=== PATIENT | female | born 1940 | race Caucasian/White ===

== ENCOUNTER 2021-12-06 13:00 | Outpatient (CLI) | payer MEDICARE, SELFPAY ==
[2021-12-06 12:01] LABS: Cholesterol* 178 mg/dL (90-199); Triglycerides* 119 mg/dL (40-149)
[2021-12-06 12:02] LABS: HDL Cholesterol* 105 mg/dL (>=50); LDL Cholesterol Calculated 49 mg/dL (<100)
[2021-12-06 13:04] LABS: Free T4 Free Thyroxine* 1.45 ng/dL (0.70-1.85)
== END 2021-12-06 13:01 | disposition home or self-care (01) ==
PROVIDERS: PCP Internal Medicine; Visit Provider Internal Medicine
DX: Z00.00 Encounter for general adult medical examination without abnormal findings (principal); E03.9 Hypothyroidism, unspecified; E66.9 Obesity, unspecified; I48.0 Paroxysmal atrial fibrillation; Z13.6 Encounter for screening for cardiovascular disorders
CPT/HCPCS: 80061; 84439; 84443

== ENCOUNTER 2022-03-08 10:22 | Emergency (ER) | payer OTHER, SELFPAY ==
[2022-03-08 10:31] VITALS: BP 132/74; PULSE 84; RESP 20; TEMP 36.1; O2SAT 94; BMI 31.2
--- NOTE | 2022-03-08 10:41 | CRLHL7_ITS ---
For Patients: As a result of the Century Cures Act, medical imaging exams and procedure reports are released immediately into your electronic medical record. You may view this report before your referring provider. If you have questions, please contact your health care provider. INDICATION: Shortness of breath. TECHNIQUE: AP portable chest. COMPARISON: December 24, 2020. FINDINGS: Both lungs are expanded and clear. No pneumothoraces nodules or infiltrates. Overall heart size is slightly enlarged but stable. Left-sided pacemaker/ICD unchanged. There is a line projected over the right shoulder. It is uncertain if this is external to the patient or merely artifact. Please correlate clinically. Chronic subluxation of the distal clavicle relative to the acromion. IMPRESSION: 1. No acute cardiopulmonary process identified. 2. Stable left-sided pacemaker. 3. Mild cardiac enlargement without overt failure. Dictated by Ken Velasco MD @ 03/08/2022 11:06:06 AM (Electronically Signed)
[2022-03-08 11:23] LABS: PCR FLU A Negative PCR FLU A (Negative); PCR FLU B Negative PCR FLU B (Negative); PCR RSV Negative PCR RSV (Negative)
[2022-03-08 11:24] LABS: SARS PCR* Negative SARS-CoV-2 (Negative)
--- NOTE | 2022-03-08 11:55 | ED.NURSE ---
pt more sob after walking to bathroom, RA sats 88%
[2022-03-08 13:05] LABS: Basophils Absolute Auto 0.02 K/uL (0.00-0.30); Basophils Percent Auto 0.4 % (0.0-3.0); Eosinophils Absolute Auto 0.08 K/uL (0.00-0.50); Eosinophils Percent Auto 1.4 % (0.0-7.0); Hematocrit 41.9 % (33.0-51.0); Hemoglobin* 13.7 gm/dL (12.0-16.0); Immature Granulocytes Abs Auto 0.02 K/uL (0.00-0.30); Immature Granulocytes Pct Auto 0.4 %; Lymphocytes Percent Auto 11.2 % (20-44); Mean Corpuscular HGB Conc 33 gm/dL (32-36); Mean Corpuscular Hemoglobin 32 pg (26-34); Mean Corpuscular Volume 97 fL (80-100); Neutrophils Percent Auto 77.6 % (42.0-72.0); Platelet Count* 143 K/uL (140-440); RDW Coefficient of Variation % 13.1 % (11.5-15.5); Red Blood Count 4.33 m/uL (4.00-5.20); White Blood Count* 5.69 K/uL (4.50-11.00)
--- NOTE | 2022-03-08 13:05 | ED_ITS ---
HPI - General Adult General Chief complaint: Weakness Stated complaint: Short of breath Time Seen by Provider: 03/08/22 10:37 History of Present Illness HPI narrative: Pt is a 81 year old woman who presents with shortness breath starting last night. Pt has a known history of asthma. She has had no productive cough, fevers, chills or chest pain. She did try taking Tylenol this morning after a fitful night which did not help. Pt lives independently at the [facility]. Pt was concerned due to her shortness of breath and was brought over to the ED by cedrick. Pt is noted to have an oxygen saturation of 94% at rest. Pt states that she is otherwise feeling ok but does have a complex past medical history including atrial fibrillation. Pt's EKG upon arrival does show atrial fibrillation upon my review without acute changes. Pt feels like she is having a flare of her asthma symptoms but is not sure why. Related Data Home Medications Medication Instructions Recorded Confirmed melatonin 3 mg capsule 3 mg PO .Bedtime as needed PRN 12/18/21 03/02/22 sodium chloride 0.65 % nasal spray 1 intranasal PRN 12/18/21 03/02/22 aerosol Previous Rx's Medication Instructions Recorded fluticasone fur. 200 mcg-umeclid 1 inh inhalation QDAY #60 ea 11/30/21 62.5 mcg-vilant 25 mcg inhalat.powder (Trelegy Ellipta) levothyroxine 125 mcg tablet 125 mcg PO QDAY #90 tabs 12/18/21 furosemide 20 mg tablet 20 mg PO QAM #90 tabs 01/26/22 metoprolol succinate 50 mg 50 mg PO QDAY #90 tabs 01/26/22 tablet,extended release 24 hr apixaban 5 mg tablet 5 mg PO BID #180 tabs 03/02/22 Allergies Allergy/AdvReac Type Severity Reaction Status Date / Time No Known Drug Allergies Allergy Verified 03/02/22 10:00 Review of Systems Status of ROS: Reports: 10 or more systems reviewed and unremarkable except as noted in History and below [facility] Medical History History of cardiac pacemaker (2020) History of fracture of facial bone (2014) History of ventricular tachycardia (2020) Surgical History History of section (11/03/08) History of dilation and curettage (12/17/18) History of open sigmoidectomy (2016) History of partial thyroidectomy (11/03/08) History of tonsillectomy (11/03/08) History of total hip replacement (07/25/12) History of tubal ligation (01/04/12) Status post cataract extraction (11/03/08) Social History Smoking Status: Never smoker How often do you have a drink containing alcohol: monthly or less AUDIT-C Alcohol total score: 1 Non-prescribed substance use: denies use Little interest or pleasure in doing things: not at all Feeling down, depressed, or hopeless: not at all service: No Exam Narrative: Exam Narrative: EXAM GENERAL: Patient appears elderly and frail. In no acute distress. EYES: No scleral icterus. THYROID: no thyroid nodules or thyromegaly. LYMPH: No supraclavicular or cervical lymphadenopathy. SKIN: Visible skin seen during exam normal or with benign process only. EXT: No dependent lower extremity pedal edema. HEART: Regular rate and rhythm with no murmurs, rubs, or gallops. LUNGS: Mild diffuse expiratory wheezes noted. ABD: Soft, non tender, non distended. PSYCH: Good eye contact, speech is not pressured. Const: Vital Signs, click to edit/add: Vital Signs - 24 hr 03/08/22 10:31 03/08/22 13:31 Temperature 97.0 F L 98.6 F Pulse Rate [Right Pulse Oximeter] 84 83 Respiratory Rate 20 20 Blood Pressure [Ri ght Upper Arm] 132/74 144/73 H Pulse Oximetry 94 93 Oxygen Delivery Me thod Room Air Room Air Course Course Hospital Course: Pt resting comfortably on room air. CBC, Troponin, D dimer, metabolic panel, chest x ray ekg ordered. Reevaluation(s) Reevaluation #1: Chest x ray negative upon my review. CBC, electrolytes, troponin, d dimer all negative for acute findings upon my review Time: 13:54 Vital Signs Vital signs: Initial Vital Signs Temperature 97.0 F L 03/08/22 10:31 Temperature Source Temporal Artery Scan 03/08/22 10:31 Pulse Rate 84 03/08/22 10:31 Respiratory Rate 20 03/08/22 10:31 Blood Pressure 132/74 03/08/22 10:31 Blood Pressure Mean 93 03/08/22 10:31 Blood Pressure Position Sitting 03/08/22 10:31 Pulse Oximetry 94 03/08/22 10:31 Oxygen Delivery Method 03/08/22 10:31 Vital Signs Temperature 97.0 F L 03/08/22 10:31 Pulse Rate 84 03/08/22 10:31 Respiratory Rate 20 03/08/22 10:31 Blood Pressure 132/74 03/08/22 10:31 Pulse Oximetry 94 03/08/22 10:31 Oxygen Delivery Method 03/08/22 10:31 Temperature 98.6 F 03/08/22 13:31 Pulse Rate 83 03/08/22 13:31 Respiratory Rate 20 03/08/22 13:31 Blood Pressure 144/73 H 03/08/22 13:31 Pulse Oximetry 93 03/08/22 13:31 Oxygen Delivery Method 03/08/22 13:31 Medical Decision Making MDM Narrative Medical decision making narrative: PPt with a history of asthma presents with SOB without major hypoxia. Pt's workup, vitals and exam normal. Will treat with Z pack and 5 days of prednisone with continuation of her home medications and PCP follow up. Differential Diagnosis Differential Diagnosis: Pneumonia, Bronchitis, Asthma, VT, PE, Anemia, Angina, Pneumothorax Lab Data Labs: Lab Results 03/08/22 03/08/22 03/08/22 Range/Units 10:32 12:55 12:55 WBC 5.69 (4.50-11.00) K/uL RBC 4.33 (4.00-5.20) m/uL Hgb 13.7 (12.0-16.0) gm/dL Hct 41.9 (33.0-51.0) % MCV 97 (80-100) fL MCH 32 (26-34) pg MCHC 33 (32-36) gm/dL RDW Coeff of Faraz 13.1 (11.5-15.5) % Plt Count 143 (140-440) K/uL Neut % (Auto) 77.6 H (42.0-72.0) % Lymph % (Auto) 11.2 L (20-44) % [place] % (Auto) 9.0 (0.0-11.0) % Eos % (Auto) 1.4 (0.0-7.0) % Baso % (Auto) 0.4 (0.0-3.0) % Neut # (Auto) 4.40 (1.7-7.0) K/uL Lymph # (Auto) 0.60 L (0.90-2.90) K/uL [place] # (Auto) 0.50 (0.00-0.90) K/UL Eos # (Auto) 0.08 (0.00-0.50) K/uL Baso # (Auto) 0.02 (0.00-0.30) K/uL D-Dimer Quant (PE/DVT) 0.47 (0.00-0.50) ug/ml Sodium (135-149) mmol/L Potassium (3.6-5.1) mmol/L Chloride (96-114) mmol/L Carbon Dioxide (20-32) mmol/L BUN (7-30) mg/dL Creatinine (0.5-1.5) mg/dL Estimated Creat Clear Estimated GFR ml/min Glucose (60-115) mg/dL Calcium (8.4-10.6) mg/dL Troponin I (0.01-0.04) ng/mL SARS-CoV-2 (PCR) Negative SARS-CoV-2 (Negative) Influenza Type A (PCR) Negative PCR FLU A (Negative) Influenza Type B (PCR) Negative PCR FLU B (Negative) RSV (PCR) Negative PCR RSV (Negative) 03/08/22 Range/Units 12:55 WBC (4.50-11.00) K/uL RBC (4.00-5.20) m/uL Hgb (12.0-16.0) gm/dL Hct (33.0-51.0) % MCV (80-100) fL MCH (26-34) pg MCHC (32-36) gm/dL RDW Coeff of Faraz (11.5-15.5) % Plt Count (140-440) K/uL Neut % (Auto) (42.0-72.0) % Lymph % (Auto) (20-44) % [place] % (Auto) (0.0-11.0) % Eos % (Auto) (0.0-7.0) % Baso % (Auto) (0.0-3.0) % Neut # (Auto) (1.7-7.0) K/uL Lymph # (Auto) (0.90-2.90) K/uL [place] # (Auto) (0.00-0.90) K/UL Eos # (Auto) (0.00-0.50) K/uL Baso # (Auto) (0.00-0.30) K/uL D-Dimer Quant (PE/DVT) (0.00-0.50) ug/ml Sodium 134 L (135-149) mmol/L Potassium 3.8 (3.6-5.1) mmol/L Chloride 103 (96-114) mmol/L Carbon Dioxide 26 (20-32) mmol/L BUN 11 (7-30) mg/dL Creatinine 0.7 (0.5-1.5) mg/dL Estimated Creat Clear 40.60 Estimated GFR 86 ml/min Glucose 108 (60-115) mg/dL Calcium 8.7 (8.4-10.6) mg/dL Troponin I < 0.01 L (0.01-0.04) ng/mL SARS-CoV-2 (PCR) (Negative) Influenza Type A (PCR) (Negative) Influenza Type B (PCR) (Negative) RSV (PCR) (Negative) Discharge Plan Discharge Clinical Impression: Asthma Condition: Stable Instructions: Asthma (ED) Additional Instructions: Z pack as directed Prednisone as directed Continue current medications Follow up with PCP as needed Activity Level: No Restrictions Discharge Diet: Regular Prescriptions: No Action apixaban 5 mg tablet 5 mg PO BID Qty: 180 3RF melatonin 3 mg capsule 3 mg PO .Bedtime as needed PRN sodium chloride 0.65 % aerosol,spray 1 intranasal PRN levothyroxine 125 mcg tablet 125 mcg PO QDAY Qty: 90 3RF Trelegy Ellipta 200-62.5-25 mcg blister with device 1 inh inhalation QDAY Qty: 60 0RF furosemide 20 mg tablet 20 mg PO QAM Qty: 90 3RF metoprolol succinate 50 mg tablet extended release 24 hr 50 mg PO QDAY Qty: 90 3RF Follow Up/Referrals: Alexandria Tello MD [Primary Care Provider] - Stand Alone [facility]: [facility] [place] [facility] Info Instructions
[2022-03-08 13:17] LABS: Chloride* 103 mmol/L (96-114); Potassium* 3.8 mmol/L (3.6-5.1); Sodium* 134 mmol/L (135-149)
[2022-03-08 13:19] LABS: Creatinine* 0.7 mg/dL (0.5-1.5); Estimated Glomerular Filt Rate 86 ml/min; Slide Review Reflex No
[2022-03-08 13:20] LABS: Blood Urea Nitrogen* 11 mg/dL (7-30); Calcium* 8.7 mg/dL (8.4-10.6); Carbon Dioxide* 26 mmol/L (20-32); Glucose* 108 mg/dL (60-115)
[2022-03-08 13:22] LABS: D Dimer Quantitative* 0.47 ug/ml (0.00-0.50)
[2022-03-08 13:31] VITALS: BP 144/73; PULSE 83; RESP 20; TEMP 37; O2SAT 93
[2022-03-08 13:44] LABS: Troponin I* < 0.01 ng/mL (0.01-0.04)
--- NOTE | 2022-03-08 14:12 | PC.NURSE ---
Patient was discharged. No PIV placed. Instructions and instymed prescription was provided. Patient wanted to ambulate back to [facility]. Encouraged patient to let us call for a ride. Waiting on ride to come and get her.
== END 2022-03-08 14:13 | disposition home or self-care (01) ==
PROVIDERS: Emergency Provider Internal Medicine; PCP Internal Medicine
DX: J45.909 Unspecified asthma, uncomplicated (principal)
CPT/HCPCS: 36415; 71045; 80048; 84484; 85025; 85379; 87502; 87634; 87635; 93005; 99283; 99284; 99285

== ENCOUNTER 2022-03-14 09:58 | Outpatient (CLI) | payer OTHER, SELFPAY ==
--- NOTE | 2022-03-14 10:15 | CRLHL7_ITS ---
For Patients: As a result of the Century Cures Act, medical imaging exams and procedure reports are released immediately into your electronic medical record. You may view this report before your referring provider. If you have questions, please contact your health care provider. BILATERAL SCREENING MAMMOGRAM WITH COMPUTER-AIDED DETECTION TECHNIQUE: CC and MLO views were obtained. These mammographic images have been obtained using full-field digital technique. These mammographic images were interpreted with the benefit of computer-aided detection. COMPARISON FILM: 12/23/19, 06/25/17, 09/19/15. FINDINGS: There are scattered areas of fibroglandular density IMPRESSION: There is no radiographic evidence for malignancy. ASSESSMENT: BI-RADS Category 1: Negative RECOMMENDATION: Routine screening mammogram in 1 year. A lay language report of this examination will be provided to the patient. Augie Gupta M.D. Diagnostic Radiologist [email or web address] Transcribed: 2:17 pm DW/Dictated by: Augie Gupta MD @ 03/14/2022 12:09:00 PM (Electronically Signed)
== END 2022-03-14 09:59 | disposition home or self-care (01) ==
LOC: MAMMO 09:58
PROVIDERS: PCP Internal Medicine; Visit Provider Internal Medicine
DX: Z12.31 Encounter for screening mammogram for malignant neoplasm of breast (principal)
CPT/HCPCS: 77067

== ENCOUNTER 2022-03-29 10:20 | Emergency (ER) | payer OTHER, SELFPAY ==
[2022-03-29] VITALS (21 sets, daily range): BP systolic 110–145; BP diastolic 61–104; PULSE 66–103; RESP 18; TEMP 36.4; O2SAT 79–98; BMI 20.5
--- NOTE | 2022-03-29 11:19 | ED.GENADULT ---
HPI - General Adult General Chief complaint: Weakness Stated complaint: Weakness Time Seen by Provider: 03/29/22 11:10 History of Present Illness HPI narrative: This 81-year-old female comes in reporting generalized malaise. She states that she had some lightheadedness this morning also. She does not report any fevers or cough. She does have a history of asthma but does not have any shortness of breath. She was in about 10 days ago and received medication for asthma symptoms. She also took 5 days of an antibiotic at that time. She states that she has had quite a bit of nausea but no vomiting over the past couple days. She also had some diarrhea. She reports that she has not taken any food for the past couple days but has had liquids. Related Data Home Medications Medication Instructions Recorded Confirmed melatonin 3 mg capsule 3 mg PO .Bedtime as needed PRN 12/18/21 03/02/22 sodium chloride 0.65 % nasal spray 1 intranasal PRN 12/18/21 03/02/22 aerosol Previous Rx's Medication Instructions Recorded fluticasone fur. 200 mcg-umeclid 1 inh inhalation QDAY #60 ea 11/30/21 62.5 mcg-vilant 25 mcg inhalat.powder (Trelegy Ellipta) levothyroxine 125 mcg tablet 125 mcg PO QDAY #90 tabs 12/18/21 furosemide 20 mg tablet 20 mg PO QAM #90 tabs 01/26/22 metoprolol succinate 50 mg 50 mg PO QDAY #90 tabs 01/26/22 tablet,extended release 24 hr apixaban 5 mg tablet 5 mg PO BID #180 tabs 03/02/22 ondansetron HCl 4 mg tablet 4 mg PO Q6H #10 tabs 03/29/22 Allergies Allergy/AdvReac Type Severity Reaction Status Date / Time No Known Drug Allergies Allergy Verified 03/29/22 10:30 Review of Systems Status of ROS: Reports: 10 or more systems reviewed and unremarkable except as noted in History and below Narrative: Constitutional: No fevers, no weight gain or loss. Eyes: No discharge. No vision changes. HENT: No congestion, no sore throat, no ear pain. Cardiovascular: No chest pain, no palpitations. Respiratory: No shortness of breath, no wheezes, no cough. Gastrointestinal: Nausea but no vomiting. Some episodes of diarrhea over the past couple days. Mild upper epigastric discomfort. Genitourinary: No dysuria, no hematuria. Musculoskeletal: Normal range of motion. Skin: No rashes, no pruritis. Neurological: No weakness, sensory change, speech change. She reports an episode of lightheadedness this morning. Endo/Heme/Allergies: No bruising or bleeding. No polydipsia. Pysch: no suicidality, no anxiety, no insomnia. All other systems reviewed and are negative. [facility] Medical History History of cardiac pacemaker (2020) History of fracture of facial bone (2014) History of ventricular tachycardia (2020) Surgical History History of section (11/03/08) History of dilation and curettage (12/17/18) History of open sigmoidectomy (2016) History of partial thyroidectomy (11/03/08) History of tonsillectomy (11/03/08) History of total hip replacement (07/25/12) History of tubal ligation (01/04/12) Status post cataract extraction (11/03/08) Social History Smoking Status: Never smoker Do you use any of these nicotine containing products: None Second hand tobacco smoke exposure: No How often do you have a drink containing alcohol: monthly or less AUDIT-C Alcohol total score: 1 Non-prescribed substance use: denies use Little interest or pleasure in doing things: not at all Feeling down, depressed, or hopeless: not at all service: No Exam Narrative: Exam Narrative: Constitutional: Well-developed, well-nourished, no acute distress. HEENT: Normocephalic, atraumatic. Neck: Normal range of motion. Nontender. Supple. Heart: Irregular. No murmurs. Normal rate. Intact distal pulses. Lungs: Clear to auscultation. No chest discomfort. No wheezes, rhonchi, or rales. Abdomen: Normal bowel sounds. Nontender. No rebound tenderness. Genitalia: Deferred. Back: No midline tenderness. Normal range of motion. Extremities: Normal range of motion. No injury. Skin: Intact. No rash. Warm. No erythema or pallor. Neurologic: No altered sensation. No weakness. Alert and oriented. Psychiatric: No suicidality. No anxiety or depression. No insomnia. Nursing notes and vitals signs are reviewed. Const: Vital Signs, click to edit/add: Vital Signs - 24 hr 03/29/22 10:30 03/29/22 11:04 03/29/22 11:05 Temperature 97.5 F L Pulse Rate 77 92 Pulse Rate [Apical ] 66 Respiratory Rate 18 Blood Pressure 145/89 H Blood Pressure [Ri ght Upper Arm] 141/95 H Pulse Oximetry 96 97 98 Oxygen Delivery Me thod Room Air 03/29/22 11:15 03/29/22 11:30 03/29/22 11:32 Temperature Pulse Rate 83 75 74 Pulse Rate [Apical ] Respiratory Rate Blood Pressure 143/82 H Blood Pressure [Ri ght Upper Arm] Pulse Oximetry 97 94 96 Oxygen Delivery Me thod 03/29/22 11:51 03/29/22 12:00 03/29/22 12:02 Temperature Pulse Rate 103 H 83 77 Pulse Rate [Apical ] Respiratory Rate Blood Pressure 130/87 Blood Pressure [Ri ght Upper Arm] Pulse Oximetry 90 95 94 Oxygen Delivery Me thod 03/29/22 12:03 03/29/22 12:15 03/29/22 12:30 Temperature Pulse Rate 74 71 74 Pulse Rate [Apical ] Respiratory Rate Blood Pressure Blood Pressure [Ri ght Upper Arm] Pulse Oximetry 93 96 97 Oxygen Delivery Me thod 03/29/22 12:32 03/29/22 12:45 03/29/22 13:00 Temperature Pulse Rate 75 74 Pulse Rate [Apical ] Respiratory Rate Blood Pressure 145/96 H Blood Pressure [Ri ght Upper Arm] Pulse Oximetry 95 97 79 L Oxygen Delivery Me thod 03/29/22 13:01 03/29/22 13:15 Temperature Pulse Rate 96 77 Pulse Rate [Apical ] Respiratory Rate Blood Pressure 132/104 H Blood Pressure [Ri ght Upper Arm] Pulse Oximetry 98 96 Oxygen Delivery Me thod Course Vital Signs Vital signs: Initial Vital Signs Temperature 97.5 F L 03/29/22 10:30 Temperature Source Temporal Artery Scan 03/29/22 10:30 Pulse Rate 66 03/29/22 10:30 Pulse Rhythm 03/29/22 10:30 Respiratory Rate 18 03/29/22 10:30 Blood Pressure 141/95 H 03/29/22 10:30 Blood Pressure Mean 110 03/29/22 10:30 Blood Pressure Position Supine 03/29/22 10:30 Pulse Oximetry 96 03/29/22 10:30 Oxygen Delivery Method 03/29/22 10:30 Vital Signs Temperature 97.5 F L 03/29/22 10:30 Pulse Rate 66 03/29/22 10:30 Respiratory Rate 18 03/29/22 10:30 Blood Pressure 141/95 H 03/29/22 10:30 Pulse Oximetry 96 03/29/22 10:30 Oxygen Delivery Method 03/29/22 10:30 Temperature 97.5 F L 03/29/22 10:30 Pulse Rate 77 03/29/22 13:15 Respiratory Rate 18 03/29/22 10:30 Blood Pressure 132/104 H 03/29/22 13:01 Pulse Oximetry 96 03/29/22 13:15 Oxygen Delivery Method 03/29/22 10:30 Medical Decision Making MDM Narrative Medical decision making narrative: This patient comes in reporting some generalized malaise and an episode of lightheadedness this morning. She states that she has not had much to eat over the past couple days. She wonders if she may have had some stomach flu or food poisoning as these symptoms began after eating a meal a couple nights ago. She arrives with normal vital signs but does have a rhythm of atrial fibrillation. Her rate is controlled. She is taking metoprolol and is on Eliquis. She has a history of paroxysmal atrial fibrillation. An IV was established where she did receive a L of D5 half-normal saline. She also received Zofran 4 mg. She states that she is feeling better. Lab results returned with reassuring results. Her troponin is in normal range. She is okay to be discharged home. A prescription for Zofran is provided. Lab Data Labs: Lab Results 03/29/22 03/29/22 03/29/22 Range/Units 11:30 11:40 11:40 WBC 7.04 (4.50-11.00) K/uL RBC 4.64 (4.00-5.20) m/uL Hgb 14.6 (12.0-16.0) gm/dL Hct 43.9 (33.0-51.0) % MCV 95 (80-100) fL MCH 32 (26-34) pg MCHC 33 (32-36) gm/dL RDW Coeff of Faraz 12.8 (11.5-15.5) % Plt Count 189 (140-440) K/uL Neut % (Auto) 80.2 H (42.0-72.0) % Lymph % (Auto) 12.1 L (20-44) % [place] % (Auto) 5.7 (0.0-11.0) % Eos % (Auto) 1.6 (0.0-7.0) % Baso % (Auto) 0.3 (0.0-3.0) % Neut # (Auto) 5.60 (1.7-7.0) K/uL Lymph # (Auto) 0.90 (0.90-2.90) K/uL [place] # (Auto) 0.40 (0.00-0.90) K/UL Eos # (Auto) 0.11 (0.00-0.50) K/uL Baso # (Auto) 0.02 (0.00-0.30) K/uL Sodium 135 (135-149) mmol/L Potassium 4.1 (3.6-5.1) mmol/L Chloride 102 (96-114) mmol/L Carbon Dioxide 28 (20-32) mmol/L BUN 13 (7-30) mg/dL Creatinine 0.7 (0.5-1.5) mg/dL Estimated Creat Clear 40.69 Estimated GFR 86 ml/min Glucose 112 (60-115) mg/dL Calcium 9.0 (8.4-10.6) mg/dL Urine Color (Yellow) Urine Appearance (Clear) Urine pH (5.0-8.5) Ur Specific [place] (1.000-1.030) Urine Protein (Negative) Urine Glucose (UA) (Negative) Urine Ketones (Negative) Urine Blood (Negative) Urine Nitrite (Negative) Urine Bilirubin (Negative) Urine Urobilinogen (0.2-1.0) Ur Leukocyte Esterase (Negative) Urine RBC (0-2) Urine WBC (0-5) Ur Squamous Epith Cells (None-Few) Urine Bacteria (None) SARS-CoV-2 (PCR) Negative SARS-CoV-2 (Negative) Influenza Type A (PCR) Negative PCR FLU A (Negative) Influenza Type B (PCR) Negative PCR FLU B (Negative) RSV (PCR) Negative PCR RSV (Negative) POC Troponin I (0.01-0.04) ng/ml 03/29/22 03/29/22 Range/Units 11:51 13:32 WBC (4.50-11.00) K/uL RBC (4.00-5.20) m/uL Hgb (12.0-16.0) gm/dL Hct (33.0-51.0) % MCV (80-100) fL MCH (26-34) pg MCHC (32-36) gm/dL RDW Coeff of Faraz (11.5-15.5) % Plt Count (140-440) K/uL Neut % (Auto) (42.0-72.0) % Lymph % (Auto) (20-44) % [place] % (Auto) (0.0-11.0) % Eos % (Auto) (0.0-7.0) % Baso % (Auto) (0.0-3.0) % Neut # (Auto) (1.7-7.0) K/uL Lymph # (Auto) (0.90-2.90) K/uL [place] # (Auto) (0.00-0.90) K/UL Eos # (Auto) (0.00-0.50) K/uL Baso # (Auto) (0.00-0.30) K/uL Sodium (135-149) mmol/L Potassium (3.6-5.1) mmol/L Chloride (96-114) mmol/L Carbon Dioxide (20-32) mmol/L BUN (7-30) mg/dL Creatinine (0.5-1.5) mg/dL Estimated Creat Clear Estimated GFR ml/min Glucose (60-115) mg/dL Calcium (8.4-10.6) mg/dL Urine Color Yellow (Yellow) Urine Appearance Clear (Clear) Urine pH 5.5 (5.0-8.5) Ur Specific [place] <= 1.005 (1.000-1.030) Urine Protein Negative (Negative) Urine Glucose (UA) Negative (Negative) Urine Ketones Negative (Negative) Urine Blood Trace-intact A (Negative) Urine Nitrite Negative (Negative) Urine Bilirubin Negative (Negative) Urine Urobilinogen 0.2 (0.2-1.0) Ur Leukocyte Esterase Negative (Negative) Urine RBC 2-5 A (0-2) Urine WBC 0-2 (0-5) Ur Squamous Epith Cells Moderate A (None-Few) Urine Bacteria None (None) SARS-CoV-2 (PCR) (Negative) Influenza Type A (PCR) (Negative) Influenza Type B (PCR) (Negative) RSV (PCR) (Negative) POC Troponin I 0.00 L (0.01-0.04) ng/ml ECG Data Attestation: I personally reviewed and interpreted this ECG as follows: Interpretation: Atrial fibrillation. Rate is 76 beats per minute. There are no specific ST or T-wave abnormalities. Right bundle branch block. Discharge Plan Discharge Clinical Impression: Atrial fibrillation, Gastroenteritis Patient Disposition: Home, Self-Care Condition: Improved Additional Instructions: Continue current plans. Increase diet as tolerated. Use medicine for nausea as needed and directed. Follow up with MD or return if worsening. Prescriptions: New ondansetron HCl 4 mg tablet 4 mg PO Q6H Qty: 10 0RF No Action apixaban 5 mg tablet 5 mg PO BID Qty: 180 3RF melatonin 3 mg capsule 3 mg PO .Bedtime as needed PRN sodium chloride 0.65 % aerosol,spray 1 intranasal PRN levothyroxine 125 mcg tablet 125 mcg PO QDAY Qty: 90 3RF Trelegy Ellipta 200-62.5-25 mcg blister with device 1 inh inhalation QDAY Qty: 60 0RF furosemide 20 mg tablet 20 mg PO QAM Qty: 90 3RF metoprolol succinate 50 mg tablet extended release 24 hr 50 mg PO QDAY Qty: 90 3RF Follow Up/Referrals: Alexandria Tello MD [Primary Care Provider] - [facility]
[2022-03-29 11:51] LABS: Basophils Absolute Auto 0.02 K/uL (0.00-0.30); Basophils Percent Auto 0.3 % (0.0-3.0); Eosinophils Absolute Auto 0.11 K/uL (0.00-0.50); Eosinophils Percent Auto 1.6 % (0.0-7.0); Hematocrit 43.9 % (33.0-51.0); Hemoglobin* 14.6 gm/dL (12.0-16.0); Immature Granulocytes Abs Auto 0.01 K/uL (0.00-0.30); Immature Granulocytes Pct Auto 0.1 %; Lymphocytes Percent Auto 12.1 % (20-44); Mean Corpuscular HGB Conc 33 gm/dL (32-36); Mean Corpuscular Hemoglobin 32 pg (26-34); Mean Corpuscular Volume 95 fL (80-100); Monocytes Percent Auto 5.7 % (0.0-11.0); Neutrophils Percent Auto 80.2 % (42.0-72.0); Platelet Count* 189 K/uL (140-440); RDW Coefficient of Variation % 12.8 % (11.5-15.5); Red Blood Count 4.64 m/uL (4.00-5.20); White Blood Count* 7.04 K/uL (4.50-11.00)
[2022-03-29 11:55] LABS: Slide Review Reflex No
[2022-03-29 12:05] LABS: Chloride* 102 mmol/L (96-114)
[2022-03-29 12:06] LABS: Potassium* 4.1 mmol/L (3.6-5.1); Sodium* 135 mmol/L (135-149)
[2022-03-29 12:08] LABS: Creatinine* 0.7 mg/dL (0.5-1.5); Est. Creatinine Clearance* 40.69; Estimated Glomerular Filt Rate 86 ml/min
[2022-03-29 12:09] LABS: Blood Urea Nitrogen* 13 mg/dL (7-30); Carbon Dioxide* 28 mmol/L (20-32); Glucose* 112 mg/dL (60-115)
[2022-03-29 12:14] LABS: Appearance Urine Clear (Clear); Bilirubin Urine Negative (Negative); Blood Urine Trace-intact (Negative); Color Urine Yellow (Yellow); Glucose Urine Negative (Negative); Ketones Urine Negative (Negative); Leukocyte Esterase Urine Negative (Negative); Nitrite Urine Negative (Negative); Protein Urine Negative (Negative); Specific Gravity Urine <= 1.005 (1.000-1.030); Urobilinogen Urine 0.2 (0.2-1.0); pH Urine 5.5 (5.0-8.5)
[2022-03-29 12:22] LABS: Squamous Epithelial Cell Urine Moderate (None-Few); WBC Urine 0-2 (0-5)
[2022-03-29 12:27] LABS: PCR FLU A Negative PCR FLU A (Negative); PCR FLU B Negative PCR FLU B (Negative); PCR RSV Negative PCR RSV (Negative)
[2022-03-29 12:34] LABS: SARS PCR* Negative SARS-CoV-2 (Negative)
--- NOTE | 2022-03-29 13:30 | ED.NURSE ---
was able to get up to the bathroom numerous times. ua was sent. is able to take oj and water. does want to go home.
--- NOTE | 2022-03-29 14:46 | ED.NURSE ---
dr frazier aware that mary did not receive ivf and zofran as she was taking po well and no complaints of nausea. wanted to go home.
== END 2022-03-29 14:20 | disposition home or self-care (01) ==
PROVIDERS: Emergency Provider Emergency Medicine Emergency Medical Services; PCP Internal Medicine
DX: I48.91 Unspecified atrial fibrillation (principal); K52.9 Noninfective gastroenteritis and colitis, unspecified
CPT/HCPCS: 36415; 80048; 81001; 84484; 85025; 87502; 87634; 87635; 93005; 99284; A0425; A0427

== ENCOUNTER 2022-04-13 00:48 | Outpatient (CLI) | payer OTHER, SELFPAY | END 2022-04-13 00:49 | disposition home or self-care (01) | LOC: AMB 04-18 11:36 | PROVIDERS: PCP Internal Medicine; Visit Provider Family Medicine | DX: R53.1 Weakness (principal) | CPT/HCPCS: A0998 ==

== ENCOUNTER 2022-04-14 18:01 | Emergency (ER) | payer OTHER, SELFPAY ==
[2022-04-14 18:09] VITALS: BP 116/64; PULSE 77; RESP 18; TEMP 36.4; O2SAT 92; BMI 29.6
[2022-04-14 18:33] LABS: Basophils Absolute Auto 0.03 K/uL (0.00-0.30); Basophils Percent Auto 0.4 % (0.0-3.0); Eosinophils Absolute Auto 0.05 K/uL (0.00-0.50); Eosinophils Percent Auto 0.7 % (0.0-7.0); Hematocrit 42.2 % (33.0-51.0); Hemoglobin* 13.8 gm/dL (12.0-16.0); Immature Granulocytes Abs Auto 0.03 K/uL (0.00-0.30); Immature Granulocytes Pct Auto 0.4 %; Lymphocytes Percent Auto 17.5 % (20-44); Mean Corpuscular HGB Conc 33 gm/dL (32-36); Mean Corpuscular Hemoglobin 32 pg (26-34); Mean Corpuscular Volume 97 fL (80-100); Monocytes Percent Auto 5.6 % (0.0-11.0); Neutrophils Percent Auto 75.4 % (42.0-72.0); Platelet Count* 268 K/uL (140-440); RDW Coefficient of Variation % 13.8 % (11.5-15.5); Red Blood Count 4.37 m/uL (4.00-5.20); White Blood Count* 7.65 K/uL (4.50-11.00)
[2022-04-14 18:46] LABS: Chloride* 106 mmol/L (96-114); Potassium* 4.3 mmol/L (3.6-5.1); Sodium* 139 mmol/L (135-149)
[2022-04-14 18:49] LABS: Blood Urea Nitrogen* 20 mg/dL (7-30); Carbon Dioxide* 26 mmol/L (20-32); Creatinine* 0.9 mg/dL (0.5-1.5); Estimated Glomerular Filt Rate 63 ml/min; Ethanol* 0.19 % (0.01-0.03); Glucose* 99 mg/dL (60-115)
[2022-04-14 18:50] LABS: Calcium* 8.5 mg/dL (8.4-10.6)
[2022-04-14 18:51] LABS: INR 1.27 (0.91-1.10); Prothrombin Time 16.7 Seconds
[2022-04-14 18:55] LABS: Slide Review Reflex No
--- NOTE | 2022-04-14 19:01 | CRLHL7_ITS ---
For Patients: As a result of the Century Cures Act, medical imaging exams and procedure reports are released immediately into your electronic medical record. You may view this report before your referring provider. If you have questions, please contact your health care provider. Indication: Fall, ETOH Technique: Volumetric multidetector CT images of the head were obtained without the administration of low osmolar intravenous contrast. Comparison: None available Findings: There is no intra-axial or extra-axial fluid collection. There is no mass effect or midline shift. There is age-related cortical atrophy with mild sulcal widening and ex vacuo dilatation of the lateral ventricles. There are chronic small vessel disease changes in the subcortical and periventricular white matter without lost shi-white differentiation. The orbits and their contents are grossly within normal limits. The bony calvarium is grossly intact. There is minimal mucosal thickening within the paranasal sinuses. The mastoid air cells are well aerated. Impression: Age-related and chronic small-vessel disease changes of the brain stable from comparison without acute intracranial abnormality. Please note that all CT scans at this facility use dose modulation, iterative reconstruction, and/or weight-based dosing when appropriate to reduce radiation dose to as low as reasonably achievable. Dictated by Dyllan Varghese MD @ 04/14/2022 8:21:35 PM (Electronically Signed)
--- NOTE | 2022-04-14 20:21 | ED.GENADULT ---
HPI - General Adult General Date Seen: 04/14/22 Chief complaint: Laceration/Wound Stated complaint: Fall Time Seen by Provider: 04/14/22 18:09 Source: patient Mode of arrival: EMS Limitations: no limitations History of Present Illness HPI narrative: Patient is an 82-year-old who lives at [facility]. She had a fall tonight and is brought in by ambulance for evaluation of a knee laceration and elbow skin tear. She tells me that she is not sure how she fell, she says she did not hit her head, has no complaints of headache or neck pain. She says that she was not even aware that she was really injured until she noticed that her knee was cut. She says that she did have to call for assistance getting up, she says she is never able to get up on her own. She does tell me that she has a previous history of having lots of problems with falls but says she has not been falling much lately since getting a pacemaker. She does take apixaban for atrial fibrillation. There are reports that she has previously been noted to have alcohol on board. Related Data Home Medications Medication Instructions Recorded Confirmed melatonin 3 mg capsule 3 mg PO .Bedtime as needed PRN 12/18/21 03/02/22 sodium chloride 0.65 % nasal spray 1 intranasal PRN 12/18/21 03/02/22 aerosol Previous Rx's Medication Instructions Recorded fluticasone fur. 200 mcg-umeclid 1 inh inhalation QDAY #60 ea 11/30/21 62.5 mcg-vilant 25 mcg inhalat.powder (Trelegy Ellipta) levothyroxine 125 mcg tablet 125 mcg PO QDAY #90 tabs 12/18/21 furosemide 20 mg tablet 20 mg PO QAM #90 tabs 01/26/22 metoprolol succinate 50 mg 50 mg PO QDAY #90 tabs 01/26/22 tablet,extended release 24 hr apixaban 5 mg tablet 5 mg PO BID #180 tabs 03/02/22 ondansetron HCl 4 mg tablet 4 mg PO Q6H #10 tabs 03/29/22 Allergies Allergy/AdvReac Type Severity Reaction Status Date / Time No Known Drug Allergies Allergy Verified 03/29/22 10:30 Review of Systems Status of ROS: Reports: 6 or more systems reviewed and unremarkable except as noted in History and below PFSH PFSH Medical History History of cardiac pacemaker (2020) History of fracture of facial bone (2014) History of ventricular tachycardia (2020) Surgical History History of section (11/03/08) History of dilation and curettage (12/17/18) History of open sigmoidectomy (2016) History of partial thyroidectomy (11/03/08) History of tonsillectomy (11/03/08) History of total hip replacement (07/25/12) History of tubal ligation (01/04/12) Status post cataract extraction (11/03/08) Social History Smoking Status: Never smoker Do you use any of these nicotine containing products: None Second hand tobacco smoke exposure: No How often do you have a drink containing alcohol: monthly or less AUDIT-C Alcohol total score: 1 Non-prescribed substance use: denies use Little interest or pleasure in doing things: not at all Feeling down, depressed, or hopeless: not at all service: No Exam Narrative: Exam Narrative: Vital signs as noted above. In general, an alert, nontoxic elderly woman, conversant. Head: Normocephalic, atraumatic. Eyes: Pupils are equal reactive. Extraocular movements are full. Conjunctivae are normal. ENT: Mucous membranes are moist. Neck: Supple without lymphadenopathy. Nontender to palpation. Heart: Regular rate and rhythm. No murmur or rub. Lungs: Clear bilaterally. No increased work of breathing, crackles or wheezes. Abdomen: Soft and nontender. No organomegaly. Extremities: She has a skin tear in her right elbow, no apparent bony tenderness, range of motion is full. No swelling. On the right knee, there is a 6 cm laceration which extends into the subcutaneous fat, no apparent injury to deeper structures. Neurologic: Patient is alert and oriented to person and place. Speech is fluent. Face is symmetric. Moves all extremities equally. She does repeat herself occasionally, particularly when she talks about not knowing why she fell. However, she is able to hold very fluent conversations about her children and their Education, their current jobs and children, her who a number of years ago, his previous work at [employer], previous travel, etc.. Affect: Normal. Skin: Warm and dry. Well perfused. Const: Vital Signs, click to edit/add: Vital Signs - 24 hr 04/14/22 18:09 Temperature 97.6 F Pulse Rate [Right Pulse Oximeter] 77 Respiratory Rate 18 Blood Pressure [Le ft Upper Arm] 116/64 Pulse Oximetry 92 Oxygen Delivery Me thod Room Air Documenting provider has reviewed patient's vital signs: yes Course Course Hospital Course: In review of her records, it looks as if she had a history of V-tach and now has a pacemaker, which is presumably why she says that she does not have falls not she has her pacemaker placed. Initially, I cleaned and put a Tegaderm on the skin tear on her right elbow. I then turned my attention to her right knee. Procedure note: I anesthetized the laceration with lidocaine with epinephrine and then cleaned the wound using normal saline. I explored carefully, the wound does not extend deep enough to affect any musculotendinous structures. I then closed the wound using 4-0 nylon. I placed initially the superficial interrupted suture, but this cause the wound edges to invert, so I removed this and I used horizontal mattress sutures instead. I placed a total of 9, with good eversion of the wound edges. She tolerated this well, no immediate complications. A dressing was placed by the water and fire technician. Did check some labs, notably, her blood alcohol was 0.19. As such, I elected to do a CT scan of the head which is read by Radiology as negative for any acute findings. Otherwise, her labs are unremarkable, CBC shows a normal white blood cell count and hemoglobin of 13.8. Her INR is 1.27. Electrolytes are normal, blood sugar is 99. Clinically she is sober, however, given her age will probably keep her here for a a little bit anyway, make sure she is ambulatory without any difficulty given her blood alcohol. Patient is ambulatory without difficulty, she has been up to the bathroom and is eager to go home. I have talked with her about her blood alcohol. She tells me that she went out and got alcohol today but did not realize how much she drank. She says that she does not have problem with alcohol and just will not buy anymore. I am suspicious that alcohol is more of a problem than she is letting on given how sober she seems at a blood alcohol of 0.2. I have tried to reinforce with her that if she finds it more difficult to stop drinking then she expects, she can certainly talk with Dr. Tello about this, talk to family about it, that there is no shame in needing help with this if she does find it to be a problem. I have expressed my concern about alcohol contributing to falls particularly given that she is on the Eliquis. For now however, she is not having any difficulty with ambulation, and I think is making decisions reasonably. She would like to go home, and I think that is reasonable at this time. She will need suture removal in about 10 days, routine wound care, return for any signs of infection. Vital Signs Vital signs: Initial Vital Signs Temperature 97.6 F 04/14/22 18:09 Temperature Source Temporal Artery Scan 04/14/22 18:09 Pulse Rate 77 04/14/22 18:09 Respiratory Rate 18 04/14/22 18:09 Blood Pressure 116/64 04/14/22 18:09 Blood Pressure Mean 81 04/14/22 18:09 Blood Pressure Position Sitting 04/14/22 18:09 Pulse Oximetry 92 04/14/22 18:09 Oxygen Delivery Method 04/14/22 18:09 Vital Signs Temperature 97.6 F 04/14/22 18:09 Pulse Rate 77 04/14/22 18:09 Respiratory Rate 18 04/14/22 18:09 Blood Pressure 116/64 04/14/22 18:09 Pulse Oximetry 92 04/14/22 18:09 Oxygen Delivery Method 04/14/22 18:09 Temperature 97.6 F 04/14/22 18:09 Pulse Rate 77 04/14/22 18:09 Respiratory Rate 18 04/14/22 18:09 Blood Pressure 116/64 04/14/22 18:09 Pulse Oximetry 92 04/14/22 18:09 Oxygen Delivery Method 04/14/22 18:09 Medical Decision Making Lab Data Labs: Lab Results 04/14/22 04/14/22 04/14/22 Range/Units 18:27 18:27 18:27 WBC 7.65 (4.50-11.00) K/uL RBC 4.37 (4.00-5.20) m/uL Hgb 13.8 (12.0-16.0) gm/dL Hct 42.2 (33.0-51.0) % MCV 97 (80-100) fL MCH 32 (26-34) pg MCHC 33 (32-36) gm/dL RDW Coeff of Faraz 13.8 (11.5-15.5) % Plt Count 268 (140-440) K/uL Neut % (Auto) 75.4 H (42.0-72.0) % Lymph % (Auto) 17.5 L (20-44) % [place] % (Auto) 5.6 (0.0-11.0) % Eos % (Auto) 0.7 (0.0-7.0) % Baso % (Auto) 0.4 (0.0-3.0) % Neut # (Auto) 5.80 (1.7-7.0) K/uL Lymph # (Auto) 1.30 (0.90-2.90) K/uL [place] # (Auto) 0.40 (0.00-0.90) K/UL Eos # (Auto) 0.05 (0.00-0.50) K/uL Baso # (Auto) 0.03 (0.00-0.30) K/uL INR 1.27 H (0.91-1.10) Sodium 139 (135-149) mmol/L Potassium 4.3 (3.6-5.1) mmol/L Chloride 106 (96-114) mmol/L Carbon Dioxide 26 (20-32) mmol/L BUN 20 (7-30) mg/dL Creatinine 0.9 (0.5-1.5) mg/dL Estimated Creat Clear 43.00 Estimated GFR 63 ml/min Glucose 99 (60-115) mg/dL Calcium 8.5 (8.4-10.6) mg/dL Ethyl Alcohol 0.19 H (0.01-0.03) % Discharge Plan Discharge Clinical Impression: Skin tear of elbow without complication, Alcohol intoxication, Laceration of knee, right Patient Disposition: Home, Self-Care Condition: Improved Instructions: Laceration (ED), Abuse of Alcohol (ED) Additional Instructions: Routine wound care, return for any signs of infection. Suture removal at clinic in about 10 days time. I would recommend avoidance from alcohol, particularly because you are on a blood thinner and it will contribute to falls. Prescriptions: No Action apixaban 5 mg tablet 5 mg PO BID Qty: 180 3RF melatonin 3 mg capsule 3 mg PO .Bedtime as needed PRN sodium chloride 0.65 % aerosol,spray 1 intranasal PRN levothyroxine 125 mcg tablet 125 mcg PO QDAY Qty: 90 3RF ondansetron HCl 4 mg tablet 4 mg PO Q6H Qty: 10 0RF Trelegy Ellipta 200-62.5-25 mcg blister with device 1 inh inhalation QDAY Qty: 60 0RF furosemide 20 mg tablet 20 mg PO QAM Qty: 90 3RF metoprolol succinate 50 mg tablet extended release 24 hr 50 mg PO QDAY Qty: 90 3RF Follow Up/Referrals: Alexandria Tello MD [Primary Care Provider] - Stand Alone Forms: [facility] Info Instructions
--- NOTE | 2022-04-14 21:11 | ED.NURSE ---
Patient ambulating around unit. Able to converse fluently with no deficits noted despite ETOH level. Patient will be transported home via private vehicles to apartment.
== END 2022-04-14 21:09 | disposition home or self-care (01) ==
PROVIDERS: Emergency Provider Emergency Medicine; PCP Internal Medicine
DX: F10.129 Alcohol abuse with intoxication, unspecified (principal); S81.012A Laceration without foreign body, left knee, initial encounter; S50.319A Abrasion of unspecified elbow, initial encounter
CPT/HCPCS: 12002; 36415; 70450; 80048; 82077; 85025; 85610; 99283; 99284; A0425; A0429

== ENCOUNTER 2022-08-26 05:11 | Emergency (ER) | payer OTHER, SELFPAY ==
[2022-08-26 05:27] VITALS: PULSE 62; O2SAT 94
[2022-08-26 05:29] VITALS: BP 122/64; PULSE 70; O2SAT 93
[2022-08-26 05:30] VITALS: PULSE 73; O2SAT 94
[2022-08-26 05:31] VITALS: BP 120/75; PULSE 67; O2SAT 95
[2022-08-26 05:36] VITALS: BP 117/70; PULSE 74; RESP 16; TEMP 36.3; O2SAT 96
--- NOTE | 2022-08-26 05:37 | CRLHL7_ITS ---
For Patients: As a result of the Century Cures Act, medical imaging exams and procedure reports are released immediately into your electronic medical record. You may view this report before your referring provider. If you have questions, please contact your health care provider. Indication: Fall, head injury laceration of the right eye Technique: Volumetric multidetector CT images of the head were obtained without the administration of low osmolar intravenous contrast. Comparison: None available Findings: There is no intra-axial or extra-axial fluid collection. There is no mass effect or midline shift. There is age-related cortical atrophy with mild sulcal widening and ex vacuo dilatation of the lateral ventricles. There are chronic small vessel disease changes in the subcortical and periventricular white matter without lost shi-white differentiation. There is marked right periorbital, preseptal soft tissue swelling. There is no evidence of displaced fracture. The bony calvarium is grossly intact. There is moderate chronic mucosal thickening seen within the paranasal sinuses. The mastoid air cells are well aerated. Impression: Right periorbital, preseptal soft tissue swelling without evidence of definite facial bony injury. Age-related and chronic small-vessel disease changes of brain without acute intracranial abnormality. Please note that all CT scans at this facility use dose modulation, iterative reconstruction, and/or weight-based dosing when appropriate to reduce radiation dose to as low as reasonably achievable. Dictated by Dyllan Varghese MD @ 08/26/2022 6:50:40 AM (Electronically Signed)
[2022-08-26 05:40] VITALS: PULSE 66; O2SAT 97
--- NOTE | 2022-08-26 07:56 | ED.GENADULT ---
HPI - General Adult General Chief complaint: Unspecified Complaint, Adult Stated complaint: fall on thinners Time Seen by Provider: 08/26/22 05:21 History of Present Illness HPI narrative: pt fell from bed, has LAC right eyebrow. Pt on blood thinners. Pt does not remember when she fell. Would have gotten back into bed if able but could not stand up. 82-year-old woman presenting to the emergency department arrival via ambulance and TT a after a fall apparently from bed in her residence at [facility]. She is noted to have sustained a cut to the right eyebrow. She is anticoagulated with a NOAC for paroxysmal atrial fibrillation. Is not saying a whole lot but apparently did not have the strength to stand back up so crawled and called for help. She is denying any neck or back pain. No abdominal pain. Did not note unusual for her heartbeats. Does not remember some details of the event but not suspected to have had a loss of consciousness. Related Data Home Medications Medication Instructions Recorded Confirmed melatonin 3 mg capsule 3 mg PO .Bedtime as needed PRN 12/18/21 03/02/22 sodium chloride 0.65 % nasal spray 1 intranasal PRN 12/18/21 03/02/22 aerosol Previous Rx's Medication Instructions Recorded fluticasone fur. 200 mcg-umeclid 1 inh inhalation QDAY #60 ea 11/30/21 62.5 mcg-vilant 25 mcg inhalat.powder (Trelegy Ellipta) levothyroxine 125 mcg tablet 125 mcg PO QDAY #90 tabs 12/18/21 furosemide 20 mg tablet 20 mg PO QAM #90 tabs 01/26/22 metoprolol succinate 50 mg 50 mg PO QDAY #90 tabs 01/26/22 tablet,extended release 24 hr apixaban 5 mg tablet 5 mg PO BID #180 tabs 03/02/22 ondansetron HCl 4 mg tablet 4 mg PO Q6H #10 tabs 03/29/22 Allergies Allergy/AdvReac Type Severity Reaction Status Date / Time No Known Drug Allergies Allergy Verified 03/29/22 10:30 Review of Systems Status of ROS: Reports: 6 or more systems reviewed and unremarkable except as noted in History and below [facility] Medical History History of ventricular tachycardia (2020) ?Z86.79 - Personal history of other diseases of the circulatory system (ICD-10) History of fracture of facial bone (2014) ?Z87.81 - Personal history of (healed) traumatic fracture (ICD-10) History of cardiac pacemaker (2020) ?Z95.0 - Presence of cardiac pacemaker (ICD-10) Surgical History Status post cataract extraction (11/03/08) ?Z98.49 - Cataract extraction status, unspecified eye (ICD-10) History of tubal ligation (01/04/12) ?Z98.51 - Tubal ligation status (ICD-10) History of total hip replacement (07/25/12) ?Z96.649 - Presence of unspecified artificial hip joint (ICD-10) History of tonsillectomy (11/03/08) ?Z90.89 - Acquired absence of other organs (ICD-10) History of partial thyroidectomy (11/03/08) ?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) History of open sigmoidectomy (2016) ?Z98.890 - Other specified postprocedural states (ICD-10) ?Z90.49 - Acquired absence of other specified parts of digestive tract (ICD-10) History of dilation and curettage (12/17/18) ?Z98.890 - Other specified postprocedural states (ICD-10) History of section (11/03/08) ?Z98.891 - History of uterine scar from previous surgery (ICD-10) Social History Smoking Status: Never smoker Do you use any of these nicotine containing products: None Second hand tobacco smoke exposure: No How often do you have a drink containing alcohol: monthly or less AUDIT-C Alcohol total score: 1 Non-prescribed substance use: denies use Little interest or pleasure in doing things: not at all Feeling down, depressed, or hopeless: not at all service: No Exam Narrative: Exam Narrative: Accompanied by her son. Blunted affect. NAD. Breathing easily. Airway open. There is intradermal laceration please lightly about 3/4 of an inch at the right brow. Cranial nerves 2-12 intact. Extraocular movements are full. Pupils are brisk and equal, reactive and accommodating. GCS of 15. Neck is supple nontender. Back is without acute deformity and nontender. No fluid at external ear canals. Negative Tian sign. Really moving all extremities without difficulty. No pain to palpation over the shoulders or clavicles or extremities. She does have mild erythema on her knees. Dentition intact. Flexes and extends without apparent pain. Notable swelling. Heart appears to be in a regular rhythm. Distant. Abdomen is soft and nontender. Evidence of injury here. No pain to palpation over the chest wall. Const: Vital Signs, click to edit/add: Vital Signs - 24 hr 08/26/22 05:27 08/26/22 05:29 08/26/22 05:30 Temperature Pulse Rate 62 70 73 Pulse Rate [Right Pulse Oximeter] Respiratory Rate Blood Pressure 122/64 Blood Pressure [Le ft Upper Arm] Pulse Oximetry 94 93 94 Oxygen Delivery Me thod 08/26/22 05:31 08/26/22 05:36 08/26/22 05:40 Temperature 97.3 F L Pulse Rate 67 66 Pulse Rate [Right Pulse Oximeter] 74 Respiratory Rate 16 Blood Pressure 120/75 Blood Pressure [Le ft Upper Arm] 117/70 Pulse Oximetry 95 96 97 Oxygen Delivery Me thod Room Air Documenting provider has reviewed patient's vital signs: yes Course Vital Signs Vital signs: Initial Vital Signs Pulse Rate 62 08/26/22 05:27 Pulse Oximetry 94 08/26/22 05:27 Vital Signs Pulse Rate 62 08/26/22 05:27 Pulse Oximetry 94 08/26/22 05:27 Temperature 97.3 F L 08/26/22 05:36 Pulse Rate 66 08/26/22 05:40 Respiratory Rate 16 08/26/22 05:36 Blood Pressure 117/70 08/26/22 05:36 Pulse Oximetry 97 08/26/22 05:40 Oxygen Delivery Method Room Air 08/26/22 05:36 Medical Decision Making MDM Narrative Medical decision making narrative: Given anticoagulation status and clear head injury will need head imaging. Does not appear to have injured anything else. This does appear to be a fall event and not necessarily medically related otherwise. CT imaging reviewed by me showing senescent changes otherwise unremarkable. No evidence of acute bleed or fracture. Soft tissue swelling consistent with evident injury on exam. Did not feel she needed anything for pain. Did return to clean and Steri-Strip her brow. Very good wound approximation achieved with benzoin and Steri-Strips. See patient discharge plan ECG Data Attestation: I personally reviewed and interpreted this ECG as follows: (Sinus rhythm with first-degree AV block. Right bundle-branch block. Rate of 66. I do not think this is actually atrial fibrillation) Critical Care Time Critical Care Time Total Critical Care Time in Minutes: 35 Discharge Plan Discharge Clinical Impression: Laceration of brow without complication, Closed head injury Patient Disposition: Home w/ Parent or Adult Condition: Improved Additional Instructions: Watch for spreading redness after 2 days accompanied by heat, swelling, marked increase in pain, purulent drainage. can trim steri-strip ends as they begin to peel away. try to encourage steri-strips to remain on for 7 days. try not to soak while steri-strips on. antibiotic ointment probably not necessary and will encourage steri-strips to fall off. Prescriptions: No Action apixaban 5 mg tablet 5 mg PO BID Qty: 180 3RF melatonin 3 mg capsule 3 mg PO .Bedtime as needed PRN sodium chloride 0.65 % aerosol,spray 1 intranasal PRN levothyroxine 125 mcg tablet 125 mcg PO QDAY Qty: 90 3RF ondansetron HCl 4 mg tablet 4 mg PO Q6H Qty: 10 0RF Trelegy Ellipta 200-62.5-25 mcg blister with device 1 inh inhalation QDAY Qty: 60 0RF furosemide 20 mg tablet 20 mg PO QAM Qty: 90 3RF metoprolol succinate 50 mg tablet extended release 24 hr 50 mg PO QDAY Qty: 90 3RF Follow Up/Referrals: Alexandria Tello MD [Primary Care Provider] - Stand Alone Forms: [facility] Info Instructions
== END 2022-08-26 06:48 | disposition home or self-care (01) ==
PROVIDERS: Emergency Provider Family Medicine; PCP Internal Medicine
DX: S01.111A Laceration without foreign body of right eyelid and periocular area, initial encounter (principal); S09.8XXA Other specified injuries of head, initial encounter; W06.XXXA Fall from bed, initial encounter; Y92.122 Bedroom in nursing home as the place of occurrence of the external cause
CPT/HCPCS: 70450; 99284; 99291; A0425; A0429; G0390

== ENCOUNTER 2022-11-07 02:38 | Outpatient (CLI) | payer OTHER, SELFPAY | END 2022-11-07 02:39 | disposition home or self-care (01) | LOC: AMB 11-10 13:56 | PROVIDERS: PCP Internal Medicine; Visit Provider Family Medicine | DX: R53.1 Weakness (principal) | CPT/HCPCS: A0998 ==

== ENCOUNTER 2022-12-20 10:23 | Outpatient (CLI) | payer OTHER, SELFPAY | END 2022-12-20 10:24 | disposition home or self-care (01) | LOC: NFLDREF 10:24 | PROVIDERS: PCP Internal Medicine; Visit Provider Internal Medicine | DX: E03.9 Hypothyroidism, unspecified (principal); E66.9 Obesity, unspecified | CPT/HCPCS: 84443 ==